=== PATIENT | male | born 1970 | race Caucasian/White ===

== ENCOUNTER 2020-09-22 07:22 | Day surgery (SDC) | payer BC, OTHER ==
[2020-09-17 15:28] VITALS: BMI 25.8
[2020-09-22] MEDS ORDERED: LIDOCAINE HCL/PF 2% SDV 5ML VIAL ONE (07:39)
[2020-09-22] MEDS ORDERED: PROPOFOL 20 ML ONE ×3 (07:39)
[2020-09-22 08:01] VITALS: TEMP 98.2
[2020-09-22 08:57] VITALS: PULSE 50
[2020-09-22 09:24] VITALS: BP 101/50
== END 2020-09-22 10:00 | disposition home or self-care (01) ==
LOC: FASU-ENDO 07:22
PROVIDERS: ATTEND Internal Medicine Gastroenterology
PROC: 0DJD8ZZ Inspection of Lower Intestinal Tract, Via Natural or Artificial Opening Endoscopic (ICD-10-PCS; principal; 2020-09-22 08:25)
DX: Z12.11 Encounter for screening for malignant neoplasm of colon (principal)